=== PATIENT | male | born 1960 | race Caucasian/White ===

== ENCOUNTER 2017-08-16 10:08 | Emergency (ER) ==
[2017-08-16 10:18] VITALS: BP 193/103; TEMP 98.3; BMI 33.2
[2017-08-16] MEDS ORDERED: LACTATED RINGERS 1,000 ML IV STA (10:20)
[2017-08-16] MEDS ORDERED: TORADOL IVP STA (10:20)
--- NOTE | 2017-08-16 10:28 | ED.PDOC ---
General ED Provider: Dr. HOA BIRD Chief Complaint: Kidney Stone Stated Complaint: Patient states he had difficulty urinating last week. He went to his urologist after finally voiding where he had a urine dip stick that was positive for bacteria. He was started on Cipro 500mg BID which he has been taking for the last few days. Today he started having severe left flank pain that stared suddenly. Time Seen by Physician: 10:15 Mode of Arrival: Walk-In Information Source: Patient Exam Limitations: No limitations Nursing and Triage Documentation Reviewed and Agree: Yes Does patient meet sepsis criteria?: Yes If yes, has appropriate treatment been initiated?: No System Inflammatory Response Syndrome: Not Applicable Sepsis Protocol: For patient's 13 years and over: Temp is 96.8 and below OR 101 and greater Pulse >90 BPM Resp >20/minute Acutely Altered Mental Status Are patient's symptoms suggestive of a new infection, such as: -Pneumonia -Skin, Soft Tissue -Endocarditis -UTI -Bone, Joint Infection -Implantable Device -Acute Abdominal Infection -Wound Infection -Meningitis -Blood Stream Catheter Infection -Unknown Musculoskeletal Complaint Exam - Back Pain Complaint/Exam Onset/Duration: 10 days Symptoms Are: Still present Initial Severity: Moderate Current Severity: Severe Location: Reports: Diffuse Character: Reports: Sharp, Aching, Spasmodic Aggravating: Reports: None Associated Signs and Symptoms: Denies: Swelling, Redness, Bruising, Fever, Weakness, Numbness, Tingling, Abdominal pain, Flank pain, Bladder incontinence, Bowel incontinence, Weight loss, Pain with weight bearing TAD Risk Factors: Reports: None AAA Risk Factors: Reports: None Cauda Equina Risk Factors: Reports: None Epidural Abcess Risk Factors: Reports: None Related Surgical History: Reports: None Focal Tenderness: Yes Paraspinal Muscle Tenderness: No Paraspinal Muscle Spasm: No Scoliosis: No Lordosis: No Kyphosis: No SLR Test: Right Negative, Left Negative Hip Motion Testing Pain: Right Negative, Left Negative Focal Weakness: Present: None Focal Sensory Loss: Present: None Gait: Present: Normal Back Picture: 1 - Left flank pain and tenderness to palpation. Differential Diagnoses: Renal Colic, Strain, Sprain Review of Systems - Review Of Systems Constitutional: Reports: No symptoms Eyes: Reports: No symptoms Ears, Nose, Mouth, Throat: Reports: No symptoms Respiratory: Reports: No symptoms Cardiac: Reports: No symptoms GI: Reports: Nausea : Reports: Hematuria Musculoskeletal: Reports: Back pain Skin: Reports: No symptoms Neurological: Reports: No symptoms Endocrine: Reports: No symptoms Hematologic/Lymphatic: Reports: No symptoms All Other Systems: Reviewed and Negative Past Medical History - Past Medical History Endocrine: Reports: None Cardiovascular: Reports: Hypertension Respiratory: Reports: Asthma Hematological: Reports: None Gastrointestinal: Reports: None Genitourinary: Reports: Kidney stones Neuro/Psych: Reports: Depression Musculoskeletal: Reports: None Cancer: Reports: None Other Pertinent Past Medical History: Pneumothorax - Surgical History General Surgical History: Reports: Orthopedic (Right leg screws and rods), Other - Family History Family History: Reports: None - Social History Smoking Status: Never smoker Hx Substance Use: No Alcohol Screening: None Physical Exam - Physical Exam Appearance: Ill-appearing Ill-appearing: Moderate Pain Distress: Severe Neck: Supple Respiratory: Airway patent, Breath sounds clear, Breath sounds equal, Respirations nonlabored Cardiovascular: RRR GI/: Soft, Nontender, No masses, Bowel sounds normal Musculoskeletal: Normal strength, ROM intact, No edema, No calf tenderness Skin: Warm, Dry, Normal color Neurological: Sensation intact, Motor intact, Reflexes intact, Cranial nerves intact, Alert, Oriented Psychiatric: Anxious Interpretation - Radiology Interpretation Radiology Interpretation By: Radiologist Radiology Results: Positive Exam Interpreted: CT Scan (0.6x0.5 cm obstructing calculus at the Left Uteterovesicular juction with resultant Left hydrouteronephrosis.) Re-Evaluation - Re-Evaluation Time of Re-Evaluation: 10:57 Status: Improved Pain Level: / from 12/03 Critical Care Note - Critical Care Note Total Time (mins): 30 Course - Course Hematology/Chemistry: 08/16/17 10:27 08/16/17 10:27 Orders, Labs, Meds: Lab Review 08/16/17 08/16/17 10:27 10:27 WBC 8.73 RBC 4.89 Hgb 13.7 L Hct 41.2 L MCV 84.3 MCH 28.0 MCHC 33.3 RDW Coeff of Jam 12.5 Plt Count 228 Immature Gran % (Auto) 0.3 Neut % (Auto) 53.5 Lymph % (Auto) 29.9 Isabela % (Auto) 10.7 H Eos % (Auto) 4.6 Baso % (Auto) 1.0 Immature Gran # (Auto) 0.0 Neut # (Auto) 4.7 Lymph # (Auto) 2.6 Isabela # (Auto) 0.9 Eos # (Auto) 0.4 Baso # (Auto) 0.1 Sodium 142 Potassium 3.4 L Chloride 108 H Carbon Dioxide 24 Anion Gap 13.4 BUN 21 H Creatinine 1.47 H Estimated GFR (MDRD) 50.00 BUN/Creatinine Ratio 14.28 Glucose 117 H Calcium 9.2 Total Bilirubin 0.5 AST 23 ALT 25 Alkaline Phosphatase 55 Total Protein 7.2 Albumin 3.9 Globulin 3.3 Albumin/Globulin Ratio 1.18 Amylase 56 Lipase 33 Orders Category Date Time Status ED BLADDER SCAN .ONCE EMERGENCY 08/16/17 10:39 Active ED IV/MEDIPORT/POWERPORT .ONCE EMERGENCY 08/16/17 10:20 Active AMYLASE Stat LAB 08/16/17 10:27 Completed CBC W/ AUTO DIFF Stat LAB 08/16/17 10:27 Completed COMPREHENSIVE METABOLIC PANEL Stat LAB 08/16/17 10:27 Completed LIPASE Stat LAB 08/16/17 10:27 Completed URINALYSIS C & S IF INDICATED Stat LAB 08/16/17 10:20 Uncollected 0.9 % Sodium Chloride [Saline Flush] MEDS 08/16/17 10:20 Active 1 syr IVF PRN PRN Hydromorphone HCl [Dilaudid] MEDS 08/16/17 10:59 Discontinued 0.5 mg IVP ONCE STA Ketorolac Tromethamine [Toradol] MEDS 08/16/17 10:20 Discontinued 30 mg IVP ONCE STA Ondansetron HCl/Pf [Zofran 4 mg/2 ml] MEDS 08/16/17 10:20 Discontinued 4 mg IM ONCE STA Ondansetron HCl/Pf [Zofran 4 mg/2 ml] MEDS 08/16/17 11:00 Discontinued 4 mg IVP ONCE STA Ringers Lactated Solution [Lactated Ringers] 1,000 ml MEDS 08/16/17 10:[address] ABD/PEL WO RENAL STONE PROT Stat RADS 08/16/17 10:39 Completed Medications Generic Name Dose Route Start Last Admin Trade Name Freq PRN Reason Stop Dose Admin Lactated Ringer's 1,000 mls @ 1,000 mls/hr 08/16/17 10:20 08/16/17 10:37 Lactated Ringers IV 08/16/17 11:19 1,000 mls/hr BOLUS STA Administration Sodium Chloride 1 syr 08/16/17 10:20 08/16/17 10:33 Saline Flush IVF 1 syr PRN PRN Administration To flush IV Discontinued Medications Generic Name Dose Route Start Last Admin Trade Name Freq PRN Reason Stop Dose Admin Hydromorphone HCl 0.5 mg 08/16/17 10:59 08/16/17 11:05 Dilaudid IVP 08/16/17 11:00 0.5 mg ONCE STA Administration Ketorolac Tromethamine 30 mg 08/16/17 10:20 08/16/17 10:32 Toradol IVP 08/16/17 10:21 30 mg ONCE STA Administration Ondansetron HCl 4 mg 08/16/17 10:20 08/16/17 11:02 Zofran 4 Mg/2 Ml IM 08/16/17 10:21 Not Given ONCE STA Ondansetron HCl 4 mg 08/16/17 11:00 08/16/17 11:01 Zofran 4 Mg/2 Ml IVP 08/16/17 11:01 4 mg ONCE STA Administration Vital Signs: Temp Pulse Resp BP Pulse Ox 08/16/17 10:09 98.3 F 67 20 193/103 H 96 Departure - Departure Time of Disposition: 11:40 Disposition: HOME SELF-CARE Discharge Problem: Kidney stone Instructions: Kidney Stones (ED), Renal Colic (ED) Condition: Fair Pt referred to PMD for follow-up: Yes IPMP verified?: Yes Additional Instructions: Follow up with your urologist next week Take medications as prescribed. Prescriptions: Hydrocodone/Acetaminophen [Helper 5-325 Tablet] 1 tab PO Q6HR PRN #20 tablet PRN Reason: PAIN Tamsulosin HCl [Flomax] 0.4 mg PO DAILY #10 cap.er.24h Allergies/Adverse Reactions: Allergies Sulfa (Sulfonamide Antibiotics) Adverse Reaction (Verified 08/16/17 10:13) Home Medications: Ambulatory Orders Ciprofloxacin HCl [Cipro] 500 mg PO BID 08/16/17 Fenofibrate Nanocrystallized [Fenofibrate] 145 mg PO DAILY 08/16/17 Fluoxetine HCl 20 mg PO DAILY 08/16/17 Hydrocodone/Acetaminophen [Helper 5-325 Tablet] 1 tab PO Q6HR PRN #20 tablet Losartan/Hydrochlorothiazide [Losartan-Hctz 100-25 mg Tab] 1 each PO DAILY 08/16 Magnesium Oxide 400 mg PO DAILY 08/16/17 Meloxicam [Mobic] 7.5 mg PO DAILY 08/16/17 Tamsulosin HCl [Flomax] 0.4 mg PO DAILY #10 cap.er.24h 08/16/17
[2017-08-16] MEDS: ZOFRAN 4 MG/2 ML IM STA ×2 (10:31→11:02)
[2017-08-16] MEDS ORDERED: DILAUDID IVP STA (10:59)
[2017-08-16] MEDS ORDERED: ZOFRAN 4 MG/2 ML IVP STA (11:00)
--- NOTE | 2017-08-16 11:06 | CT ---
Exam: CT scan of the abdomen pelvis without contrast. Date: 08/16/2017. Comparison: None. HISTORY: Left flank pain with history of hematuria. TECHNIQUE: Helical scan of the abdomen pelvis was performed without contrast. FINDINGS: The lung bases are clear. Degenerative changes are seen in the lower thoracic spine and i n the lumbar spine. Degenerative changes are also present in the sacroiliac joints and hip joints bi laterally. Dystrophic calcifications are incidentally seen adjacent to the left pubic symphysis. The spleen and liver have a uniform attenuation. The gallbladder, stomach, pancreas and adrenal glan ds are normal. The kidneys have a normal morphology. There is left hydroureteronephrosis down to th e ureteropelvic junction, where a 0.6 x 0.5 cm obstructing calculus is present. The right collecting system is normal. No retroperitoneal adenopathy is present. Aorta does not exceed 3 cm. The small bowel and appendix are normal. The colon, pelvic sidewall and bladder are normal. There is no free pelvic fluid. Prostate, rectum and inguinal regions are normal. Impression: There is a 0.6 x 0.5 cm obstructing calculus at the left ureterovesicular junction with resultant left hydroureteronephrosis.
[2017-08-16] MEDS ORDERED: FLOMAX PO STA (11:09)
== END 2017-08-16 12:35 | disposition home or self-care (01) ==
LOC: ED 10:08
DX: N20.0 Calculus of kidney (principal); I10 Essential (primary) hypertension; Z79.899 Other long term (current) drug therapy; Z87.442 Personal history of urinary calculi
CPT/HCPCS: 36415; 74176; 80053; 82150; 83690; 85025; 96361; 96374; 96375; 99283